=== PATIENT | male | born 1965 | race Caucasian/White ===

== ENCOUNTER 2017-08-29 05:10 | Emergency (ER) | payer SELFPAY ==
[~2017-08-29] VITALS: Ht 188 cm; Wt 155.5 kg
[2017-08-29 06:44] VITALS: BP 143/97
== END 2017-08-29 06:45 | disposition home or self-care (01) ==
LOC: EME 05:10
DX: S83.92XA Sprain of unspecified site of left knee, initial encounter (principal); X50.1XXA Overexertion from prolonged static or awkward postures, initial encounter; E78.5 Hyperlipidemia, unspecified; I10 Essential (primary) hypertension; K21.9 Gastro-esophageal reflux disease without esophagitis; Z79.82 Long term (current) use of aspirin; F17.200 Nicotine dependence, unspecified, uncomplicated
CPT/HCPCS: 73564; 99281; 99283